=== PATIENT | male | born 1990 | race African-American/Black ===

== ENCOUNTER 2017-03-27 23:29 | Emergency (ER) | payer OTHER ==
[~2017-03-27] VITALS: Ht 167.6 cm; Wt 68.0 kg
[2017-03-27] MEDS ORDERED: ESCI10TA2 (23:45)
[2017-03-27] MEDS ORDERED: GABA-282 (23:45)
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
[2017-03-28 01:23] VITALS: BP 145/66
== END 2017-03-28 01:36 | disposition left against medical advice (07) ==
LOC: M ED 23:29
DX: S01.81XA Laceration without foreign body of other part of head, initial encounter (principal); S31.010A Laceration without foreign body of lower back and pelvis without penetration into retroperitoneum, initial encounter; X58.XXXA Exposure to other specified factors, initial encounter; Y92.89 Other specified places as the place of occurrence of the external cause; Y93.89 Activity, other specified; Y99.8 Other external cause status